=== PATIENT | female | born 1935 | race Caucasian/White ===

== ENCOUNTER 2016-11-05 14:49 | Emergency (ER) | payer MEDICARE, OTHER ==
[~2016-11-05] VITALS: Ht 167.6 cm; Wt 75.0 kg
[~2016-11-05 14:49] MED LIST: DIAZ5TAB3; PROT40T; ZOL50; hctz; synthroid
[2016-11-05 14:53] VITALS: BP 183/88; PULSE 65; RESP 18; O2SAT 99
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
[2016-11-05 15:12] LABS: EOSINOPHILS % (AUTO) 2.5 % (0-5); MONOCYTES % (AUTO) 6.9 % (4-12); Mean Corpuscular Hemoglobin 29.8 pg (27.0-35.0); Mean Corpuscular Volume 92.4 fL (81-100); NEUTROPHILS % (AUTO) 66.3 % (40-74); Platelet Count 303 bil/L (150-400)
[2016-11-05] MEDS ORDERED: Alum-Mag Hydrox-Simeth 30 mL Suspension PO ONE (15:20)
[2016-11-05 15:38] LABS: TROPONIN T < 0.010 ug/L (0.0-0.011)
[2016-11-05 15:48] LABS: Magnesium 2.2 mg/dL (1.6-2.6)
--- NOTE | 2016-11-05 16:04 | DRSVH ---
PROCEDURE: X-RAY CHEST, TWO VIEWS ([id number]) INDICATIONS: throat/chest pain TECHNIQUE: 2 views of the chest were acquired. COMPARISON: [facility], , CHEST 2VW, 08/18/2012, 17:04. FINDINGS: Surgical changes and devices: None. Lungs and pleura: No pleural effusions or pneumothorax. Lungs are clear. Emphysematous changes are present. Mediastinum: Mediastinal contours are normal. Heart size is normal. Bones and chest wall: No suspicious bony abnormalities. Soft tissues appear unremarkable. IMPRESSION: No acute pulmonary process. Dictated by: Ana M Angelo M.D. on 11/05/2016 at 16:02 Approved by: Ana M Angelo M.D. on 11/05/2016 at 16:02
[2016-11-05 17:28] VITALS: BP 142/89; PULSE 66; O2SAT 97
== END 2016-11-05 18:04 | disposition home or self-care (01) ==
LOC: SED 14:49
DX: R07.89 Other chest pain (principal); K21.9 Gastro-esophageal reflux disease without esophagitis; E78.5 Hyperlipidemia, unspecified; I10 Essential (primary) hypertension; E03.9 Hypothyroidism, unspecified